=== PATIENT | male | born 1950 | race Caucasian/White ===

== ENCOUNTER 2021-08-12 20:30 | Inpatient (IN) | payer OTHER ==
[~2021-08-12] VITALS: Ht 182.9 cm; Wt 107.8 kg
[2021-08-12 21:30] LABS: Alanine Aminotransfer (ALT/SGP 56 U/L (12-78); Albumin, Blood 2.1 g/dL (3.4-5.0); Albumin/Globulin Ratio 0.8 (0.8-1.8); Alk Phos 42 U/L (50-136); Anion Gap 9 mmol/L (6-16); Aspartate Aminotrans (AST/SGOT 44 U/L (12-37); Bilirubin, Total 0.7 mg/dL (0.1-1.0); Blood Urea Nitrogen 91 mg/dL (8-24); Bun/Creatinine Ratio 83.5 (12.0-20.0); CO2, Blood 23 mmol/L (21-32); Calcium, Blood 8.2 mg/dL (8.5-10.1); Chloride, Blood 110 mmol/L (98-108); Creatinine, Blood 1.09 mg/dL (0.60-1.20); Globulin, Blood 2.6 g/dL (2.2-4.0); Glomerular Filtration Rate >60 (60-); Glucose, Blood 132 mg/dL (70-99); Potassium, Blood 4.3 mmol/L (3.5-5.5); Sodium, Blood 142 mmol/L (136-145); Total Protein, Blood 4.7 g/dL (6.4-8.2)
[2021-08-12 21:31] LABS: BASOPHILS ABSOLUTE AUTO 0.04 K/mm3 (0.00-0.23); BASOPHILS PERCENT AUTO 0 % (0-2); MONOCYTES PERCENT AUTO 9 % (4-13)
[2021-08-12 21:38] LABS: EOSINOPHILS ABSOLUTE AUTO 0.12 K/mm3 (0.00-0.68); EOSINOPHILS PERCENT AUTO 1 % (0-6); IMMATURE GRAN ABSOLUTE AUTO 0.89 K/mm3 (0.00-0.10); IMMATURE GRAN PERCENT AUTO 5 % (0-1); LYMPHOCYTES PERCENT AUTO 19 % (21-46); MONOCYTES ABSOLUTE AUTO 1.76 K/mm3 (0.16-1.47); Mean Corpuscular HGB 34.3 pg (26.0-34.0); Mean Corpuscular HGB Conc 33.3 g/dL (31.5-36.5); Mean Corpuscular Volume 103 fL (80-100); Mean Platelet Volume 11.4 fL (9.1-12.4); NEUTROPHILS ABSOLUTE AUTO 12.26 K/mm3 (1.96-9.15); NEUTROPHILS PERCENT AUTO 66 % (41-73); NRBC ABSOLUTE 0.51 K/mm3 (0.00-0.02); NRBC Auto 2.7 /100 WBC (0.0-0.2); Platelet Count 132 K/mm3 (150-400); RDW Coefficient Variation 15.1 % (11.7-14.2); RDW Standard Deviation 52.8 fL (35.1-46.3); White Blood Cell Count 18.67 K/mm3 (4.00-11.30)
[2021-08-12 21:40] LABS: Hematocrit 14.4 % (37.0-53.0); Hemoglobin 4.8 g/dL (13.5-17.5)
[2021-08-12 21:52] LABS: Influenza A, PCR NEGATIVE (NEGATIVE); Influenza B, PCR NEGATIVE (NEGATIVE); Resp Syncytial Virus, PCR NEGATIVE (NEGATIVE); SARS-Cov-2 (COVID-19) PCR, MMC NEGATIVE (NEGATIVE)
[2021-08-13 00:33] LABS: Hematocrit 20.6 % (37.0-53.0); Hemoglobin 6.9 g/dL (13.5-17.5)
--- NOTE | 2021-08-13 01:15 | NUR ---
Assumed care. Report received from WELDING MACHINE OPERATOR [employer]. Pt arrived to ICU, EGD team with Dr. Comer at bedside for scope procedure. After procedure, one unit of PRBCs transfused for low H&H. Protonix running at 10 ml/hr. Pt recovered slowly from procedural sedation but was able to wake up and follow commands. Family at bedside for approximately 1 hour after procedure finished. VS stable throughout event.
--- NOTE | 2021-08-13 01:26 | NUR ---
08/13/21 0126 Ara Banegas MONITOR INTACT WITH CONTINUOUS PULSE OXIMETRY AND INTERMITTENT BP. PROCEDURE ROOM ICU 4.
[2021-08-13] MEDS ORDERED: TIMO.5OPSO BOTHEYES (02:49)
--- NOTE | 2021-08-13 06:42 | NUR ---
Shift summary. Pt stayed in bed since admission and scope procedure. After procedure, pt desaturated easily and oxygen requirements increased to 6 L/min via NC. Stat chest xray obtained for assessment, no new orders received. See shift assessment/notes for further details. Albumin running at 100 ml/hr, protonix infusing at 10 ml/hr. Pt able to use urinal in bed, 550 voided this shift. VS stable, will continue to monitor and report off to dayshift RN.
[2021-08-13 07:16] LABS: BASOPHILS ABSOLUTE AUTO 0.05 K/mm3 (0.00-0.23); BASOPHILS PERCENT AUTO 0 % (0-2); EOSINOPHILS ABSOLUTE AUTO 0.09 K/mm3 (0.00-0.68); EOSINOPHILS PERCENT AUTO 1 % (0-6); Hematocrit 23.1 % (37.0-53.0); Hemoglobin 7.7 g/dL (13.5-17.5); IMMATURE GRAN ABSOLUTE AUTO 0.66 K/mm3 (0.00-0.10); IMMATURE GRAN PERCENT AUTO 4 % (0-1); LYMPHOCYTES ABSOLUTE AUTO 2.72 K/mm3 (0.84-5.20); LYMPHOCYTES PERCENT AUTO 16 % (21-46); MONOCYTES PERCENT AUTO 11 % (4-13); Mean Corpuscular HGB 32.4 pg (26.0-34.0); Mean Corpuscular HGB Conc 33.3 g/dL (31.5-36.5); Mean Platelet Volume 11.2 fL (9.1-12.4); NEUTROPHILS ABSOLUTE AUTO 11.48 K/mm3 (1.96-9.15); NEUTROPHILS PERCENT AUTO 68 % (41-73); NRBC ABSOLUTE 0.86 K/mm3 (0.00-0.02); NRBC Auto 5.1 /100 WBC (0.0-0.2); Platelet Count 107 K/mm3 (150-400); RDW Coefficient Variation 17.8 % (11.7-14.2); RDW Standard Deviation 58.3 fL (35.1-46.3); Red Blood Cell Count 2.38 M/mm3 (4.30-5.90)
--- NOTE | 2021-08-13 07:28 | NUR ---
Patient awake in bed post lab draw. He is alert to person and place. he follows basic directions and is able to communicate his needs. he is on 6L O2 via NC and sats 100% and will wean down as appropriate. He has audible wheezes at bedside. He has 18ga RW and is infusing Protonix at 10 ml/hr, also has 18ga LAC dressing intact and site WNL's and is flushed and SL'd. He sits at bedside and uses urinal appropriatly and had about 100ml light chito urine out and layed back down to rest.
[2021-08-13 07:36] LABS: Alanine Aminotransfer (ALT/SGP 63 U/L (12-78); Albumin, Blood 2.7 g/dL (3.4-5.0); Albumin/Globulin Ratio 1.1 (0.8-1.8); Alk Phos 45 U/L (50-136); Anion Gap 10 mmol/L (6-16); Aspartate Aminotrans (AST/SGOT 55 U/L (12-37); Bilirubin, Total 1.1 mg/dL (0.1-1.0); Blood Urea Nitrogen 93 mg/dL (8-24); Bun/Creatinine Ratio 87.7 (12.0-20.0); CO2, Blood 20 mmol/L (21-32); Calcium, Blood 7.9 mg/dL (8.5-10.1); Chloride, Blood 111 mmol/L (98-108); Creatinine, Blood 1.06 mg/dL (0.60-1.20); Globulin, Blood 2.4 g/dL (2.2-4.0); Glomerular Filtration Rate >60 (60-); Glucose, Blood 117 mg/dL (70-99); Potassium, Blood 4.4 mmol/L (3.5-5.5); Sodium, Blood 141 mmol/L (136-145); Total Protein, Blood 5.1 g/dL (6.4-8.2)
[2021-08-13 07:49] LABS: Mean Corpuscular Volume 97 fL (80-100)
--- NOTE | 2021-08-13 09:30 | NUR ---
Patient up out of bed and urinated on floor, so placed him in recliner and changed bed linen and cleaned him up a little bit. He remains omn 6L O2 via NC and sats 100%, tried to wean down but with his sleeping started to de-sat. He needs to have SBA when up as he is weak and shakey. He has 400 ml light chito urine out. Ex- at bedside.
[2021-08-13 12:16] LABS: Hematocrit 19.2 % (37.0-53.0); Hemoglobin 6.6 g/dL (13.5-17.5)
--- NOTE | 2021-08-13 13:30 | NUR ---
He was up in chair for short period and had full liquid diet and tolerated well. He remains on 6l O2 via NC and sats mid 90%'s. Ex- back at bedside. He has transferred back to bed with one assist and tolerated well. He seems more oriented since being up with new diet.
[2021-08-13 15:06] LABS: Percent Saturation 59.8 % (20.0-50.0)
--- NOTE | 2021-08-13 15:36 | NUR ---
Patient remains in bed and just started to get up to use urinal and does not call. Protonix continues at 10 m l/hr. He is going to get blood for 6.6 HgB. He has been following simple commands. Ex- and left for a litle while and he was sleeping until lab awoke him. NN started another 20ga IV in RFA posterior.
[2021-08-13 15:58] LABS: International Normalized Ratio 1.63; Prothrombin Time Results 16.6 Sec (9.7-11.5)
--- NOTE | 2021-08-13 18:00 | NUR ---
Patient very restless and is up and down constantly. Blood still infusing, almost done. still at bedside. He remains on 6L O2 and sats 100%. He has been using urinal sitting up at bedside and amount 100-200 ml at a time. He tolerated dinner about 90%. Protonix 10 ml/hr. 18ga LAC IV is oozing and NOC will change out.
--- NOTE | 2021-08-13 19:15 | NUR ---
ASSUMED CARE OF PATIENT. HE IS AGITATED AND VERY RESTLESS. HE IS CLIMBING OUT OF BED EVERY COUPLE MINUTES AND GETTING TANGLED IN MONITOR CORDS, STATES HE NEEDS TO PEE. ASSISTED PT TO BEDSIDE COMMODE AND OBTAINED ORDER FOR LIDOCAINE UROJET FOR STONER PLACEMENT. PT IS ORIENTED TO SELF, PLACE, AND EVENT, BUT IS FORGETFUL AND IMPULSIVE. BOTH IV'S ARE LEAKING AND PT HAS TO GET UP TO URINATE EL FEW MINUTES.
--- NOTE | 2021-08-13 20:00 | NUR ---
DR PETER IS CALLED FOR PRECEDEX ORDERS.
[2021-08-13 21:14] LABS: Source, Urine Foley catheter
[2021-08-13 21:19] LABS: Hematocrit 17.3 % (37.0-53.0)
[2021-08-13 21:20] LABS: Bilirubin, Urine Neg (Neg); Blood, Urine Neg (Neg); Glucose Qualitative, Urine Neg (Neg); Ketones, Urine Neg (Neg); Leukocyte Esterase, Urine Neg (Neg); Nitrite, Urine Neg (Neg); Protein, Urine 1+ (Neg); Specific Gravity, Urine 1.015 (1.003-1.022); Urobilinogen, Urine NORM (Normal)
[2021-08-13 21:31] LABS: Appearance, Urine Clear (Clear); Color, Urine Pale Yellow (P-Yellow)
--- NOTE | 2021-08-13 23:00 | NUR ---
DR PETER IS CALLED FOR ORDERS FOR HYPOTENSION. ORDER FOR LOW DOSE LEVOPHED RECEIVED.
[2021-08-14 04:28] LABS: Alanine Aminotransfer (ALT/SGP 66 U/L (12-78); Albumin, Blood 2.1 g/dL (3.4-5.0); Albumin/Globulin Ratio 0.9 (0.8-1.8); Alk Phos 39 U/L (50-136); Anion Gap 4 mmol/L (6-16); Aspartate Aminotrans (AST/SGOT 69 U/L (12-37); Bilirubin, Total 1.1 mg/dL (0.1-1.0); Blood Urea Nitrogen 81 mg/dL (8-24); Bun/Creatinine Ratio 84.2 (12.0-20.0); CO2, Blood 27 mmol/L (21-32); Calcium, Blood 7.7 mg/dL (8.5-10.1); Chloride, Blood 112 mmol/L (98-108); Creatinine, Blood 0.96 mg/dL (0.60-1.20); Globulin, Blood 2.3 g/dL (2.2-4.0); Glomerular Filtration Rate >60 (60-); Glucose, Blood 130 mg/dL (70-99); Potassium, Blood 4.7 mmol/L (3.5-5.5); Sodium, Blood 143 mmol/L (136-145); Total Protein, Blood 4.4 g/dL (6.4-8.2)
[2021-08-14 05:15] LABS: Hematocrit 22.6 % (37.0-53.0); Hemoglobin 7.7 g/dL (13.5-17.5); Mean Corpuscular HGB 31.7 pg (26.0-34.0); Mean Corpuscular HGB Conc 34.1 g/dL (31.5-36.5); Mean Corpuscular Volume 93 fL (80-100); Mean Platelet Volume 10.8 fL (9.1-12.4); NRBC Auto 8.5 /100 WBC (0.0-0.2); Platelet Count 60 K/mm3 (150-400); RDW Coefficient Variation 16.2 % (11.7-14.2); RDW Standard Deviation 52.2 fL (35.1-46.3); Red Blood Cell Count 2.43 M/mm3 (4.30-5.90); White Blood Cell Count 10.53 K/mm3 (4.00-11.30)
[2021-08-14 05:51] LABS: BAND PERCENT MAN 9 % (0-8); BASOPHILS PERCENT MAN 0 % (0-2); EOSINOPHILS PERCENT MAN 0 % (0-6); LYMPHOCYTES ABSOLUTE MAN 1.36 K/mm3 (0.84-5.20); LYMPHOCYTES PERCENT MAN 13 % (21-46); METAMYELOCYTE PERCENT MAN 1 % (0-0); MONOCYTES ABSOLUTE MAN 0.84 K/mm3 (0.16-1.47); MONOCYTES PERCENT MAN 8 % (4-13); MYELOCYTE ABSOLUTE MAN 0.21 K/mm3 (0.00-0.00); MYELOCYTE PERCENT MAN 2 % (0-0); SEG NEUTROPHILS PERCENT MAN 67 % (41-73); TOTAL CELLS COUNTED 100
--- NOTE | 2021-08-14 06:44 | NUR ---
PTIS RESTFUL AND CALM ON PRECEDEX, TITRATED TO HR AND SEDATION. BP STABLE ON LEVOPHED AT 2MCG/MIN. NO OTHER SIGNIFICANT CHANGES NOTED. POC IS REPEAT EGD TODAY. NO EMESIS OR STOOLING OVERNIGHT. WILL CONTINUE TO MONITOR AND REPORT TO ONCOMING SHIFT.
[2021-08-14 09:50] LABS: Hematocrit 23.9 % (37.0-53.0); Hemoglobin 8.1 g/dL (13.5-17.5)
--- NOTE | 2021-08-14 11:52 | NUR ---
ASSUMED CARE OF PATIENT 0700: AOX1, RESTRAINTS ON, FOLLOWS COMMANDS, SOMNOLENT, DEX 0.9 NOW TITRATING DOWN, NSR 70S, BP WNL WITH LOW DOSE LEVO 2, LUNGS CLEAR/DIM SATS WNL ON RA, STONER DRAINING CLEAR YELLOW OUTPUT, NO BM, H&H STABLE, WILL CONTINUE TO MONITOR.
--- NOTE | 2021-08-14 14:53 | NUR ---
INTO ICU 4 SETTING UP TO DO ENDOSCOPY CASE. PATIENT ASSLEEP IN BED AT BEDSIDE.
--- NOTE | 2021-08-14 15:32 | NUR ---
08/14/21 1532 Williams Lindsay See Anesthesia record DR CHONG. Bite Block Placed. POM MASK THROUGH OUT PROCDEDURE. History, Chart, Medications and Allergies reviewed before start of procedure. MONITOR INTACT WITH CONTINUOUS PULSE OXIMETRY AND INTERMITTENT BP.
--- NOTE | 2021-08-14 17:05 | NUR ---
POST EGD EXCESSIVE SOMNOLENCE, SATS WNL, RR WNL, GCS 3, PATIENT ABLE TO FOLLOW COMMANDS/OPEN EYES AT 1630, LEVO 1-5 DURRING RECOVERY, NOW ON STANDBY, CONTINUED SOMNOLENCE BUT ABLE TO FOLLOW COMMANDS, NOW ON RA, WILL CONTINUE TO MONITOR.
--- NOTE | 2021-08-14 19:34 | NUR ---
AOX1, ALERT TO SELF, PRECEDEX TITRATED TO EFFECT, RESTRAINTS CONTINUED, WRIST RESTRAINTS OFF 1600 FOR IMPROVED BEHAVIOR, SR 70S, FLUID RETENTION EVIDENT EXTREMETIES, CT SCAN COMPLETED PENDING RESULTS, AWAITING ECHO, EGD COMPLETED GASTRIC VARICIES, AWAITING BED AT [facility] FOR TRANSFER TIPS/BANDING PER MD CRUZ, H&H STABLE THIS SHIFT, ADEQUATE UOP CLEAR/ZONIA FROM STONER, LUNGS CLEAR/DIM, RA VS 4L NC POST EGD, REPORT GIVEN TO NIGHT RN.
--- NOTE | 2021-08-14 20:00 | NUR ---
ASSUMED CARE OF PT AT 1900. HE IS MORE ALERT, CALM, AND COOPERATIVE AT THIS TIME, AOX4/4. PRECEDEX HAS BEEN TITRATED DOWN TO 0.2MCG/KG/HR AND LEVOPHED IS OFF. EGD DONE TODAY FINDING GASTRIC VARICES. PT IS PENDING TRANSFER TO [facility] FOR TIPS.
--- NOTE | 2021-08-14 23:00 | NUR ---
PT HAS BECOME INCREASINGLY AGITATED, REQUIRING PRECEDEX TO BE TITRATED UP. HE HAS PULLED OUT IV'S AND IS PULLING ON HIS STONER CATHETER. HE IS REORIENTED AND REDIRECTED WHILE MEDICATION TAKES EFFECT.
[2021-08-14 23:19] LABS: Hematocrit 22.3 % (37.0-53.0); Hemoglobin 7.4 g/dL (13.5-17.5)
--- NOTE | 2021-08-14 23:33 | NUR ---
DR CRUZ IS UPDATED WITH HGB AND HCT. WILL RECHECK WITH MORNING LABS AND TRANSFUSE 1 UNIT PRBC'S IF HGB <7.
--- NOTE | 2021-08-15 00:25 | NUR ---
PT IS UPDATED WITH POC PER DR. CRUZ. PT IS NOT BEING TRANSFERRED TONIGHT TO [facility], AWAITING ECHO RESULTS AND FURTHER DISCUSSION WITH [facility], PT, AND FAMILY ABOUT RISKS/BENEFITS OF TIPS PROCEDURE IF PT IS A CANDIDATE.
[2021-08-15 05:11] LABS: Hematocrit 22.2 % (37.0-53.0); Hemoglobin 7.3 g/dL (13.5-17.5); Mean Corpuscular HGB 31.7 pg (26.0-34.0); Mean Corpuscular HGB Conc 32.9 g/dL (31.5-36.5); Mean Corpuscular Volume 97 fL (80-100); Mean Platelet Volume 10.9 fL (9.1-12.4); NRBC Auto 11.3 /100 WBC (0.0-0.2); Platelet Count 59 K/mm3 (150-400); RDW Coefficient Variation 17.8 % (11.7-14.2); RDW Standard Deviation 55.5 fL (35.1-46.3); White Blood Cell Count 7.94 K/mm3 (4.00-11.30)
[2021-08-15 05:30] LABS: Alanine Aminotransfer (ALT/SGP 84 U/L (12-78); Albumin, Blood 2.1 g/dL (3.4-5.0); Albumin/Globulin Ratio 0.9 (0.8-1.8); Alk Phos 42 U/L (50-136); Anion Gap 4 mmol/L (6-16); Aspartate Aminotrans (AST/SGOT 80 U/L (12-37); Bilirubin, Total 0.9 mg/dL (0.1-1.0); Blood Urea Nitrogen 58 mg/dL (8-24); Bun/Creatinine Ratio 67.6 (12.0-20.0); CO2, Blood 27 mmol/L (21-32); Calcium, Blood 7.6 mg/dL (8.5-10.1); Chloride, Blood 116 mmol/L (98-108); Creatinine, Blood 0.86 mg/dL (0.60-1.20); Globulin, Blood 2.3 g/dL (2.2-4.0); Glomerular Filtration Rate >60 (60-); Glucose, Blood 118 mg/dL (70-99); Potassium, Blood 4.5 mmol/L (3.5-5.5); Sodium, Blood 147 mmol/L (136-145); Total Protein, Blood 4.4 g/dL (6.4-8.2)
[2021-08-15 05:34] LABS: International Normalized Ratio 1.33; Prothrombin Time Results 13.7 Sec (9.7-11.5)
--- NOTE | 2021-08-15 06:11 | NUR ---
FOLLOWING EPISODE OF ESCALATING AGITATION, PT CALMS AND RESTS WELL FOR SEVERAL HOURS WITH ATIVAN AND PRECEDEX. PRECEDEX IS TITRATED BACK DOWN TO 0.8MCG/KG/HR AT THIS POINT. HE IS CURRENTLY ON 1 MCG/MIN OF LEVOPHED FOR BP SUPPORT. SPO2 MAINTAINED IN HIGH 90'S ON NC AT 2LPM. HR 60'S TO 80'S, BUE EDEMATOUS WITH ARMS ELEVATED ON PILLOWS. UO 950ML TOTAL FOR THE SHIFT. WILL CONTINUE TO MONITOR AND REPORT TO ONCOMING SHIFT.
[2021-08-15 06:43] LABS: BASOPHILS ABSOLUTE MAN 0.07 K/mm3 (0.00-0.23); BASOPHILS PERCENT MAN 1 % (0-2); EOSINOPHILS ABSOLUTE MAN 0.23 K/mm3 (0.00-0.68); EOSINOPHILS PERCENT MAN 3 % (0-6); LYMPHOCYTES % ATYPICAL MANUAL 1 % (0-0); LYMPHOCYTES PERCENT MAN 18 % (21-46); METAMYELOCYTE ABSOLUTE MAN 0.07 K/mm3 (0.00-0.00); METAMYELOCYTE PERCENT MAN 1 % (0-0); MONOCYTES ABSOLUTE MAN 0.79 K/mm3 (0.16-1.47); MONOCYTES PERCENT MAN 10 % (4-13); MYELOCYTE ABSOLUTE MAN 0.31 K/mm3 (0.00-0.00); MYELOCYTE PERCENT MAN 4 % (0-0); NEUTROPHILS ABSOLUTE MAN 4.92 K/mm3 (1.96-9.15); SEG NEUTROPHILS PERCENT MAN 62 % (41-73); TOTAL CELLS COUNTED 100
--- NOTE | 2021-08-15 07:37 | NUR ---
Received report from Sona OWENS. Patient sleeping and awakens to verbal stimuli and falls back to sleep. He is on 2L O2 via NC and sats 98%. He has bilateral PowerGlides in Upper arms, Left arm is infusing Octrotide 50 mcg/hr, Precedex at 0.8 mcg/kg/hr and NS TKO, right one infusing Protonix at 10 ml/hr. He has 14 Fr Nicole draining to gravity dark yellow urine. He has bilateral soft wrist restraits and damion in place. SCD's bilateral to LE's. SR 70's and 90 systolic with MAP 65 and >.
[2021-08-15 09:11] LABS: HBSAG SCREEN Negative (Negative); HEP B CORE AB, TOT Positive (Negative); HEP C VIRUS AB >11.0 (0.0-0.9)
--- NOTE | 2021-08-15 11:28 | NUR ---
Patient given bath and linen change with oral care and cath care. He awakened with care and falls back to sleep. Nicole remains patent. Bilateral PowerGlides infusing, Right is infusing Octreotide at 50 mcg/hr, Precedex at 0.8 mcg/kg/hr and NS TKO, right powerglide infusing Protonix at 10 ml/hr. SCD remains on bilateralLE's. He also remains in a damion and bilateral soft wrist.
--- NOTE | 2021-08-15 13:30 | NUR ---
Patients has been in and out, but he has been sleeping. Protonix at 10ml/hr, Precedex at 1.0 and was increased an hour ago for agitation, Octreotide at 50 mcg/hr and NS TKO. Nicole remains patent with dark yellow urine. SCD's bilateral LE's
--- NOTE | 2021-08-15 15:30 | NUR ---
Reduced Precedex back to 0.7 and patient is resting, also medicated with 1 mg of Ativan. Ex- at bedside taking breaks off and on. Awaiting Dr Comer to come by. VSS. He remains on 1.5L O2 via NC and sats 99%. Octreotide and Protonix remains same rates.
[2021-08-15 17:14] LABS: Hematocrit 22.5 % (37.0-53.0); Hemoglobin 7.2 g/dL (13.5-17.5)
--- NOTE | 2021-08-15 17:57 | NUR ---
Patient continues to rest. Remains on 2L O2 via NC and sats 100% with apnea. He has bilateral 18ga IV's, left infusing NS tko, Octreotide at 50 mcg/hr, Precedex at 0.7 mcg/kg/hr, and right infusing Protonix at 10. All lines changed out. Nicole patent and has 1220 out of dark yellow urine. SCD's bilateral LE's and poasey with bilateral soft wrist restraints.
--- NOTE | 2021-08-15 19:15 | NUR ---
Assumed care after report recv'd assessment complete. precedex infusing at 0.7, resting quietly. will arouse when spoken to and follow requests. Nods yes/no to quesitions then goes back to sleep. Dr Comer in to see, orders rec'd.
--- NOTE | 2021-08-16 01:28 | NUR ---
Awake, attempting to climb out of bed. pulling on restraints. stating wants "out". will not redirect. ativan given for agitation
--- NOTE | 2021-08-16 02:00 | NUR ---
Continues to climb out of bed, begins to have audible wheezes. Lung sounds with wheezing in bilat upper lobes, worse on left. RT called for breathing treatment. encouraged to cough- cough weak. Audible wheezing subsided but continues to have wheezing in upper lobes.
[2021-08-16 04:49] LABS: Hematocrit 23.6 % (37.0-53.0); Hemoglobin 7.6 g/dL (13.5-17.5); Mean Corpuscular HGB 32.6 pg (26.0-34.0); Mean Corpuscular HGB Conc 32.2 g/dL (31.5-36.5); Mean Corpuscular Volume 101 fL (80-100); Mean Platelet Volume 11.1 fL (9.1-12.4); NRBC ABSOLUTE 0.24 K/mm3 (0.00-0.02); NRBC Auto 5.5 /100 WBC (0.0-0.2); RDW Coefficient Variation 19.2 % (11.7-14.2); RDW Standard Deviation 56.5 fL (35.1-46.3); Red Blood Cell Count 2.33 M/mm3 (4.30-5.90); White Blood Cell Count 4.35 K/mm3 (4.00-11.30)
[2021-08-16 05:04] LABS: Alanine Aminotransfer (ALT/SGP 96 U/L (12-78); Albumin, Blood 2.1 g/dL (3.4-5.0); Albumin/Globulin Ratio 0.8 (0.8-1.8); Alk Phos 51 U/L (50-136); Anion Gap 3 mmol/L (6-16); Aspartate Aminotrans (AST/SGOT 83 U/L (12-37); Bilirubin, Total 1.5 mg/dL (0.1-1.0); Blood Urea Nitrogen 36 mg/dL (8-24); Bun/Creatinine Ratio 48.7 (12.0-20.0); CO2, Blood 27 mmol/L (21-32); Calcium, Blood 7.4 mg/dL (8.5-10.1); Chloride, Blood 119 mmol/L (98-108); Creatinine, Blood 0.74 mg/dL (0.60-1.20); Globulin, Blood 2.5 g/dL (2.2-4.0); Glomerular Filtration Rate >60 (60-); Glucose, Blood 113 mg/dL (70-99); Sodium, Blood 149 mmol/L (136-145); Total Protein, Blood 4.6 g/dL (6.4-8.2)
[2021-08-16 05:27] LABS: Platelet Count 45 K/mm3 (150-400)
[2021-08-16 05:40] LABS: BAND PERCENT MAN 5 % (0-8); BASOPHILS PERCENT MAN 0 % (0-2); EOSINOPHILS ABSOLUTE MAN 0.17 K/mm3 (0.00-0.68); EOSINOPHILS PERCENT MAN 4 % (0-6); LYMPHOCYTES ABSOLUTE MAN 0.34 K/mm3 (0.84-5.20); LYMPHOCYTES PERCENT MAN 8 % (21-46); METAMYELOCYTE ABSOLUTE MAN 0.08 K/mm3 (0.00-0.00); METAMYELOCYTE PERCENT MAN 2 % (0-0); MONOCYTES ABSOLUTE MAN 0.17 K/mm3 (0.16-1.47); MONOCYTES PERCENT MAN 4 % (4-13); MYELOCYTE ABSOLUTE MAN 0.17 K/mm3 (0.00-0.00); MYELOCYTE PERCENT MAN 4 % (0-0); NEUTROPHILS ABSOLUTE MAN 3.34 K/mm3 (1.96-9.15); PROMYELOCYTE ABSOLUTE MAN 0.04 K/mm3 (0.00-0.00); PROMYELOCYTE PERCENT MAN 1 % (0-0); SEG NEUTROPHILS PERCENT MAN 72 % (41-73); TOTAL CELLS COUNTED 100
--- NOTE | 2021-08-16 06:23 | NUR ---
Confused and restless, attempting to climb out of bed and pull lines off. Precedex increased as needed to help decrease agitation. Hgb up from yesterday, plt decreased. Dr notified of platlet level.
--- NOTE | 2021-08-16 07:33 | NUR ---
received report from pm rn, patient confused, moaning, and pulling at restraints, constant restless movements in bed, responds to name, [email or web address]
--- NOTE | 2021-08-16 09:53 | NUR ---
at bedside, reported pateint care to her
--- NOTE | 2021-08-16 10:40 | NUR ---
DOBHOFF PLACED, PLACEMENT CHECKED WITH STETHESCOPE, CHEST XRAY FOR PLACEMENT ORDERED, PATIENT TOLERATED WELL, SCREAMING ANF THRASHING HEAD NOW SAYING "TAKE IT OUT", HE IS RESTING COMFORTABLE, LEFT MESSAGE FOR DR IRVING THAT AT BEDSIDE WANTING A UPDATE FROM THE DOCTOR
--- NOTE | 2021-08-16 10:54 | NUR ---
XRAY FOR DOBHOF DONE, WAITING FOR RESULTS
--- NOTE | 2021-08-16 13:21 | NUR ---
DOBHOF PLACED, PLACEMENT GOOD PER RADIOLOGY, GUIDE WIRE REMOVED JEVITY 1.5 INFUSING AT 25 ML/HR, HOB 30 DEGREES OR GREATER, WCTM
--- NOTE | 2021-08-16 14:14 | NUR ---
DRI ROUNDING ON PATIENT, NO CHANGES MADE
--- NOTE | 2021-08-16 16:35 | NUR ---
CLARIFY PATIENT DOES NOT HAVE A SUPRAPUBIC CATHETER, IT IS A STONER CATHETER
--- NOTE | 2021-08-16 18:29 | NUR ---
PATIENT LETHARGIC WITH MOMENTS OF CLARITY, CONFUSED YELLING HELP, UNCONSOLABLE, GARBLED SPEECH, CLEAR AT TIMES, CALL LIGHT WITH IN REACH, PATIENT CONSTANTLY MOVES AND TRIES TO GRAB LINES. LS SOUNDS COARSE, COUGH CLEARS CONGESTION, FALIED BEDSIDE SWALLOW EVAL, DOBHOFF IN PLACE JEVITY 1.5 INFUSING, TKO NS, OCTREOTIDE 25 ML/HR, PROTONIX 10 ML/HR, PRECEDES 1.4 PER ORDER, SO VISTIED THROUGH THE DAY, WILL RELAY TO PM RN, JENNTM
[2021-08-17 03:37] LABS: Hematocrit 23.1 % (37.0-53.0); Hemoglobin 7.2 g/dL (13.5-17.5); Mean Corpuscular HGB 31.7 pg (26.0-34.0); Mean Corpuscular HGB Conc 31.2 g/dL (31.5-36.5); Mean Corpuscular Volume 102 fL (80-100); NRBC ABSOLUTE 0.05 K/mm3 (0.00-0.02); NRBC Auto 1.9 /100 WBC (0.0-0.2); RDW Coefficient Variation 19.8 % (11.7-14.2); RDW Standard Deviation 55.8 fL (35.1-46.3); Red Blood Cell Count 2.27 M/mm3 (4.30-5.90); White Blood Cell Count 2.69 K/mm3 (4.00-11.30)
[2021-08-17 03:41] LABS: Platelet Count 38 K/mm3 (150-400)
[2021-08-17 03:52] LABS: Anion Gap 1 mmol/L (6-16); Blood Urea Nitrogen 24 mg/dL (8-24); CO2, Blood 28 mmol/L (21-32); Calcium, Blood 7.1 mg/dL (8.5-10.1); Chloride, Blood 121 mmol/L (98-108); Creatinine, Blood 0.65 mg/dL (0.60-1.20); Glomerular Filtration Rate >60 (60-); Glucose, Blood 168 mg/dL (70-99); Magnesium, Blood 2.4 mg/dL (1.6-2.4); Phosphorus, Blood 2.7 mg/dL (2.5-4.9); Potassium, Blood 4.2 mmol/L (3.5-5.5); Sodium, Blood 150 mmol/L (136-145)
[2021-08-17 04:08] LABS: BAND PERCENT MAN 3 % (0-8); BASOPHILS PERCENT MAN 0 % (0-2); EOSINOPHILS ABSOLUTE MAN 0.08 K/mm3 (0.00-0.68); EOSINOPHILS PERCENT MAN 3 % (0-6); LYMPHOCYTES ABSOLUTE MAN 0.18 K/mm3 (0.84-5.20); LYMPHOCYTES PERCENT MAN 7 % (21-46); METAMYELOCYTE ABSOLUTE MAN 0.02 K/mm3 (0.00-0.00); METAMYELOCYTE PERCENT MAN 1 % (0-0); MONOCYTES ABSOLUTE MAN 0.48 K/mm3 (0.16-1.47); MONOCYTES PERCENT MAN 18 % (4-13); MYELOCYTE ABSOLUTE MAN 0.05 K/mm3 (0.00-0.00); MYELOCYTE PERCENT MAN 2 % (0-0); NEUTROPHILS ABSOLUTE MAN 1.85 K/mm3 (1.96-9.15); SEG NEUTROPHILS PERCENT MAN 66 % (41-73); TOTAL CELLS COUNTED 100
--- NOTE | 2021-08-17 05:27 | NUR ---
Remains confused with agitation, when awake makes continous attempts to climb out of bed and pull at dyer and lines. restraints remain in place. Unable to redirect. Oriented to self only and does not follow directions. Precedex weined down due to bradycardia.
--- NOTE | 2021-08-17 10:18 | NUR ---
0813 DR RUEDA ROUNDED, RECOMMENDED SUPERVISOR PASTE PLANT TO INCREASE FUSH AMOUNT IN DOBHOF, ATIVAN CHANGED TO Q2P, AMMONIA 50, LACTULOSE ADDED. REPORTED TO SUPERVISOR PASTE PLANT THE NEED TO INCREASE FLUSHES, WCTM
[2021-08-17 14:09] LABS: ACTIN (SMOOTH MUSCLE) ANTIBODY 13 Units (0-19)
[2021-08-17 15:20] LABS: Anion Gap 1 mmol/L (6-16); Blood Urea Nitrogen 20 mg/dL (8-24); Bun/Creatinine Ratio 32.6 (12.0-20.0); CO2, Blood 30 mmol/L (21-32); Calcium, Blood 7.2 mg/dL (8.5-10.1); Chloride, Blood 121 mmol/L (98-108); Creatinine, Blood 0.61 mg/dL (0.60-1.20); Glomerular Filtration Rate >60 (60-); Glucose, Blood 162 mg/dL (70-99); Potassium, Blood 4.2 mmol/L (3.5-5.5); Sodium, Blood 152 mmol/L (136-145)
--- NOTE | 2021-08-17 18:30 | NUR ---
PATIENT SLEEPING OR AWAKE, ORIENTED TO SELF AND PAST, SPEECH GARBLED AND IS A MOAN, HARD TO UNDERSTAND, SO AND GRANDAUGHTER AT BEDSIDE. LS CLEAR, WHEN PATIENT STRAINS AGAINTS RESTRAINTS HE BECOME WHEEZY FROM EXHAUSTION. SBP WNL, DENIES CP. STONER PINK/ORANGE TO GRAVITY. LIQUID STOOL TODAY, SKIN CLEAN DRY AND INTACT. JEVITY 1.5 AT 80 ML/HR GOAL RATE, FLUSHES INCREASED TO 235 Q4H, OCTREOTIDE AT 25 ML/HR, PRECEDEX 1, 1/2 NS AT TKO, PROTONIX 10ML/HR. CLARIFIED NO NEED FOR DVT PROPHOLACTIC TREATMENT. WILL RELAY TO PM RN, MERCEDES
[2021-08-18 03:49] LABS: Hematocrit 26.3 % (37.0-53.0); Hemoglobin 8.1 g/dL (13.5-17.5)
[2021-08-18 04:05] LABS: Anion Gap 3 mmol/L (6-16); Blood Urea Nitrogen 21 mg/dL (8-24); Bun/Creatinine Ratio 31.8 (12.0-20.0); CO2, Blood 29 mmol/L (21-32); Calcium, Blood 7.3 mg/dL (8.5-10.1); Chloride, Blood 120 mmol/L (98-108); Creatinine, Blood 0.66 mg/dL (0.60-1.20); Glomerular Filtration Rate >60 (60-); Glucose, Blood 140 mg/dL (70-99); Potassium, Blood 3.7 mmol/L (3.5-5.5); Sodium, Blood 152 mmol/L (136-145)
--- NOTE | 2021-08-18 05:55 | NUR ---
confused, thrashing around in bed, attempting to climb out of bed most of night, would not answer questions or follow directions. Incont of liquid dark brown stool. this am around 0400 started talking, asking questions. able to answer questions, but confused. will follow directions but goes back to attempting to get out of bed. will redirect for short period of time. increased wheezing through night in left lobes and audible at times. having increased dyspnea. hospitalist called and notified of changes- order for cxr rec'd.
--- NOTE | 2021-08-18 09:16 | NUR ---
ASSUMED CARE OF PATIENT 0700: AOX1, AGITATED, PULLING AT RESTRAINTS, ATTEMPTING TO PULL LINES/GET OUT OF BED, ATIVAN 1MG GIVEN, DEX AT 0.8 UP TO 1, VSS ON 2L NC, SOME SUBTLE EXP WHEEZE MONICA, EDEMA +1 BLE, TF AT GOAL W/ INCREASED WATER FLUSHES, HYPOACTIVE BOWELS, GIVEN LACTULOSE, WILL CONTINUE TO MONITOR.
[2021-08-18 11:17] LABS: BASOPHILS ABSOLUTE AUTO 0.03 K/mm3 (0.00-0.23); BASOPHILS PERCENT AUTO 1 % (0-2); EOSINOPHILS ABSOLUTE AUTO 0.14 K/mm3 (0.00-0.68); EOSINOPHILS PERCENT AUTO 3 % (0-6); Hematocrit 30.2 % (37.0-53.0); IMMATURE GRAN ABSOLUTE AUTO 0.08 K/mm3 (0.00-0.10); IMMATURE GRAN PERCENT AUTO 2 % (0-1); LYMPHOCYTES ABSOLUTE AUTO 0.66 K/mm3 (0.84-5.20); LYMPHOCYTES PERCENT AUTO 14 % (21-46); MONOCYTES ABSOLUTE AUTO 0.45 K/mm3 (0.16-1.47); MONOCYTES PERCENT AUTO 10 % (4-13); Mean Corpuscular HGB 31.5 pg (26.0-34.0); Mean Corpuscular HGB Conc 29.8 g/dL (31.5-36.5); Mean Corpuscular Volume 106 fL (80-100); Mean Platelet Volume 11.4 fL (9.1-12.4); NEUTROPHILS ABSOLUTE AUTO 3.32 K/mm3 (1.96-9.15); NEUTROPHILS PERCENT AUTO 71 % (41-73); RDW Coefficient Variation 20.3 % (11.7-14.2); RDW Standard Deviation 65.2 fL (35.1-46.3); Red Blood Cell Count 2.86 M/mm3 (4.30-5.90); White Blood Cell Count 4.68 K/mm3 (4.00-11.30)
[2021-08-18 11:37] LABS: Platelet Count 48 K/mm3 (150-400)
[2021-08-18 12:55] LABS: Anion Gap 4 mmol/L (6-16); Blood Urea Nitrogen 20 mg/dL (8-24); Bun/Creatinine Ratio 29.9 (12.0-20.0); CO2, Blood 29 mmol/L (21-32); Calcium, Blood 7.5 mg/dL (8.5-10.1); Chloride, Blood 120 mmol/L (98-108); Creatinine, Blood 0.67 mg/dL (0.60-1.20); Glomerular Filtration Rate >60 (60-); Glucose, Blood 125 mg/dL (70-99); Potassium, Blood 3.7 mmol/L (3.5-5.5); Sodium, Blood 153 mmol/L (136-145)
[2021-08-18 16:31] LABS: Anion Gap 2 mmol/L (6-16); Blood Urea Nitrogen 19 mg/dL (8-24); Bun/Creatinine Ratio 27.6 (12.0-20.0); CO2, Blood 28 mmol/L (21-32); Calcium, Blood 7.4 mg/dL (8.5-10.1); Chloride, Blood 120 mmol/L (98-108); Creatinine, Blood 0.69 mg/dL (0.60-1.20); Glomerular Filtration Rate >60 (60-); Glucose, Blood 152 mg/dL (70-99); Potassium, Blood 3.6 mmol/L (3.5-5.5); Sodium, Blood 150 mmol/L (136-145)
--- NOTE | 2021-08-18 18:45 | NUR ---
AOX1, REMAINS CONFUSED AND AGITATED, GIVEN 5MG ATIVAN PLUS TITRATION OF DEX 0.8-1.4, RESTRAINTS CONTINUED, GARBLED SPEECH AT TIMES, LUNGS CLEAR/DIM W/ SOME SUBTLE EXP WHEEZE MONICA, DIURESING W/ LASIX, ON RA VS 2L NC WHEN SLEEPING, SATS WNL, SR 80S, +2 PULSES, +1 BLE EDEMA IMPROVING W/ LASIX, TF CONTINUED GOAL 80 W/ FLUSHES, ABDOMEN REMAINS DISTENDED NON TENDER, 2 BROWN TYPE 5 BMS, STONER ADEQUATE UOP, LACTULOSE GIVEN W/ AMONIA RETURN TO 31, NA REMAINS HIGH 130, STARTED D5 AT 50 W/ RETURN TO 150 NA, WILL CONTINUE TO MONITOR AND REPORT TO NIGHT RN.
--- NOTE | 2021-08-19 05:00 | NUR ---
Patient per assessment. Precedex gtt at 1.2 at start of shift; pt somulent. Precedex titrated down as tolerated. PRN ativan given for breakthrough agitation, precedex increased for ongoing agitation unrelieved by ativan. Pt is not redirectable; does not follow commands or communicate. Restraints in place for patient safety and decive protection. Large incont episode, 3 seprate liquid bm's, FMS inserted. During care, patient becomes very agitated and fights with staff, not redirectable or cooperative.
[2021-08-19 05:37] LABS: BASOPHILS ABSOLUTE AUTO 0.02 K/mm3 (0.00-0.23); BASOPHILS PERCENT AUTO 1 % (0-2); EOSINOPHILS ABSOLUTE AUTO 0.14 K/mm3 (0.00-0.68); EOSINOPHILS PERCENT AUTO 4 % (0-6); Hematocrit 26.7 % (37.0-53.0); Hemoglobin 8.2 g/dL (13.5-17.5); IMMATURE GRAN ABSOLUTE AUTO 0.04 K/mm3 (0.00-0.10); IMMATURE GRAN PERCENT AUTO 1 % (0-1); LYMPHOCYTES ABSOLUTE AUTO 0.49 K/mm3 (0.84-5.20); LYMPHOCYTES PERCENT AUTO 13 % (21-46); MONOCYTES ABSOLUTE AUTO 0.52 K/mm3 (0.16-1.47); MONOCYTES PERCENT AUTO 14 % (4-13); Mean Corpuscular HGB 32.4 pg (26.0-34.0); Mean Corpuscular HGB Conc 30.7 g/dL (31.5-36.5); Mean Corpuscular Volume 106 fL (80-100); Mean Platelet Volume 12.2 fL (9.1-12.4); NEUTROPHILS ABSOLUTE AUTO 2.54 K/mm3 (1.96-9.15); NEUTROPHILS PERCENT AUTO 68 % (41-73); RDW Coefficient Variation 19.9 % (11.7-14.2); RDW Standard Deviation 67.5 fL (35.1-46.3); Red Blood Cell Count 2.53 M/mm3 (4.30-5.90); White Blood Cell Count 3.75 K/mm3 (4.00-11.30)
[2021-08-19 05:40] LABS: Platelet Count 31 K/mm3 (150-400)
[2021-08-19 05:56] LABS: Alanine Aminotransfer (ALT/SGP 99 U/L (12-78); Albumin/Globulin Ratio 0.7 (0.8-1.8); Alk Phos 90 U/L (50-136); Anion Gap 5 mmol/L (6-16); Aspartate Aminotrans (AST/SGOT 87 U/L (12-37); Bilirubin, Total 0.7 mg/dL (0.1-1.0); Blood Urea Nitrogen 19 mg/dL (8-24); Bun/Creatinine Ratio 30.1 (12.0-20.0); CO2, Blood 29 mmol/L (21-32); Calcium, Blood 7.2 mg/dL (8.5-10.1); Chloride, Blood 116 mmol/L (98-108); Creatinine, Blood 0.63 mg/dL (0.60-1.20); Globulin, Blood 2.9 g/dL (2.2-4.0); Glomerular Filtration Rate >60 (60-); Glucose, Blood 122 mg/dL (70-99); Magnesium, Blood 2.2 mg/dL (1.6-2.4); Phosphorus, Blood 2.8 mg/dL (2.5-4.9); Potassium, Blood 3.8 mmol/L (3.5-5.5); Sodium, Blood 150 mmol/L (136-145); Total Protein, Blood 4.9 g/dL (6.4-8.2)
--- NOTE | 2021-08-19 08:00 | NUR ---
Assumed care. AO to self, does try to answer simple questions when asked. Mumbles with occational clear formed words or short phrases. Pupils equal and reactive. Machine Bookkeeper weak bilaterally. Does wiggle and raise his legs. Audiable expirtory wheezes t/o mid lobes, diminished in bases. No cough noted. O2 2l nc with sats in the 90's. Sinus on the monitor in the 80-90's. BP wnl. Generalized edema dependent in the hips, abdomin. +2 in ble, scd's ordered and currently taking a break from them. Abdomin distended, firm, denies tenderness, pain or nausea. BT hypoactive. Rectal tube in place, dark brown liquid stool, small amount in tube. Cath is patent, dark chito urine. Skin PWD, no breakdown. IV Gtt's include precedex of 1mcq/hr, protonix-10, dextrose-50, sandostatin-50. Will continue to provide care and tx.
--- NOTE | 2021-08-19 08:20 | NUR ---
Spoke to Dr. Maldonado regarding blood sugar >400. New orders received, see chart.
--- NOTE | 2021-08-19 09:00 | NUR ---
Dr. Watson here to see the patient. Informed of expirtory wheezes, increase in alertness. Already spoke to her a half hour ago on the telephone and discussed starting of mood stabilizer as he has been difficult time coming off the precedex. She put in order for serequel. First dose was given.
--- NOTE | 2021-08-19 09:35 | NUR ---
Dr. Burgos and Dr. Maldonado here to see the patient. New orders received. Dr. Burgos decreased peep on vent to 5.
--- NOTE | 2021-08-19 10:30 | NUR ---
got her at 10 am. Gave her an update. She talked about Vicente habits at home, which included his drinking. She informed me that he still does drink but it may be go 1-2 weeks with maybe 3-4 drinks in that period then several weeks off. She has been researching cirrhosis, had questions. Answers were given, and encouraged her to reach out this his doctor as well.
--- NOTE | 2021-08-19 12:00 | NUR ---
Vicente is more awake, forming short sentences, clear. Still drowsy but mentation is improved.
--- NOTE | 2021-08-19 12:00 | NUR ---
Bed changed to Bariatric. Transfer went well, patient tolerated. Suction and oral care was given.
--- NOTE | 2021-08-19 15:50 | NUR ---
Dr. Comer here to see the patient. New orders were received.
--- NOTE | 2021-08-19 16:20 | NUR ---
arrived, currently in the room. Dr. Comer called and updated her.
--- NOTE | 2021-08-19 18:05 | NUR ---
SHIFT SUMMARY: AOx2 (family/self). T/O the day he has improved on communication and ability to form short sentences and comperhension. Improvement was post 1st dose of serequel. Follows directions and has improvement in cooperation during care. Continues to be in posy and soft wrist bilateral to protect lines and from falls. Expiritory wheezes t/o the day with some diminished bases. Dr. Watson ordered xray and breathing tx. Xray normal. No change in wheezes after breathing tx. 2L NC sats high 90's. Continues to be sinus on monitor. Generalized edema to abd, hips, and bilateral hands. Lasix per oders. Nicole patent, dark urine output, 1100 output. Distended abdomin, per md bowers then prior day, hypoactive BT. Rectal tube with liquid brown stool, not enough to reach the bag. Dr. Comer saw the patient. Protonix changed to PO, Propanol started, and lactolose decreased to BID. Continues to be on Precedex at 1 for now. Significant other was informed of Liver dx including Hep C, by Dr. Comer. Education was provided, she plans to look further into it. Will report to oncoming shift.
[2021-08-20 03:39] LABS: BASOPHILS ABSOLUTE AUTO 0.01 K/mm3 (0.00-0.23); BASOPHILS PERCENT AUTO 0 % (0-2); EOSINOPHILS ABSOLUTE AUTO 0.11 K/mm3 (0.00-0.68); EOSINOPHILS PERCENT AUTO 4 % (0-6); Hematocrit 23.4 % (37.0-53.0); Hemoglobin 7.1 g/dL (13.5-17.5); IMMATURE GRAN ABSOLUTE AUTO 0.03 K/mm3 (0.00-0.10); IMMATURE GRAN PERCENT AUTO 1 % (0-1); LYMPHOCYTES ABSOLUTE AUTO 0.46 K/mm3 (0.84-5.20); LYMPHOCYTES PERCENT AUTO 16 % (21-46); MONOCYTES PERCENT AUTO 14 % (4-13); Mean Corpuscular HGB 31.1 pg (26.0-34.0); Mean Corpuscular HGB Conc 30.3 g/dL (31.5-36.5); Mean Corpuscular Volume 103 fL (80-100); Mean Platelet Volume 11.7 fL (9.1-12.4); NEUTROPHILS ABSOLUTE AUTO 1.88 K/mm3 (1.96-9.15); NEUTROPHILS PERCENT AUTO 65 % (41-73); RDW Coefficient Variation 19.2 % (11.7-14.2); RDW Standard Deviation 65.8 fL (35.1-46.3); Red Blood Cell Count 2.28 M/mm3 (4.30-5.90); White Blood Cell Count 2.89 K/mm3 (4.00-11.30)
[2021-08-20 04:04] LABS: Alanine Aminotransfer (ALT/SGP 127 U/L (12-78); Albumin, Blood 1.8 g/dL (3.4-5.0); Albumin/Globulin Ratio 0.7 (0.8-1.8); Alk Phos 77 U/L (50-136); Anion Gap 2 mmol/L (6-16); Aspartate Aminotrans (AST/SGOT 133 U/L (12-37); Bilirubin, Total 0.6 mg/dL (0.1-1.0); Blood Urea Nitrogen 18 mg/dL (8-24); CO2, Blood 29 mmol/L (21-32); Calcium, Blood 7.1 mg/dL (8.5-10.1); Chloride, Blood 114 mmol/L (98-108); Creatinine, Blood 0.67 mg/dL (0.60-1.20); Globulin, Blood 2.7 g/dL (2.2-4.0); Glomerular Filtration Rate >60 (60-); Glucose, Blood 123 mg/dL (70-99); Potassium, Blood 3.8 mmol/L (3.5-5.5); Sodium, Blood 145 mmol/L (136-145); Total Protein, Blood 4.5 g/dL (6.4-8.2)
[2021-08-20 04:19] LABS: Platelet Count 37 K/mm3 (150-400)
--- NOTE | 2021-08-20 09:00 | NUR ---
Assumed Care. AO to self, confused, with increase in mumbling, non-sensenical speech. Does follow direction. Unable to form sentences this morning. Generalized weakness, wiggles every where in bed. Audiable wheezes t/o. Sats 100% on 2 liters. Removed 2L nc, will monitor for drops. Sinus Patrick on Monitor 57-60 then will increase into the 70's. Has had several PVC's. Denies any pain or discomfort. Generalized edema in hands, abd, hips, scrotum. Abd distended, active BT. Liquid Brown stool in rectal tube, minimal. TF at goal, no residual. Abdomin firm. Nicole Gisella clear, patent. No changes in skin condition. Dr. Watson in to see the patient. Increase in seroquel noted. D5 fluids decreased to 30ml/hr. Stopped sandostatin per orders. Significant other stopped by and informed that she has been staying in her car, but she needs to go home for a while. informed will keep updated. Will continue to monitor and provide care.
[2021-08-20 14:33] LABS: Anion Gap 3 mmol/L (6-16); Blood Urea Nitrogen 20 mg/dL (8-24); Bun/Creatinine Ratio 29.3 (12.0-20.0); CO2, Blood 32 mmol/L (21-32); Calcium, Blood 7.1 mg/dL (8.5-10.1); Chloride, Blood 111 mmol/L (98-108); Creatinine, Blood 0.68 mg/dL (0.60-1.20); Glomerular Filtration Rate >60 (60-); Glucose, Blood 130 mg/dL (70-99); Potassium, Blood 3.7 mmol/L (3.5-5.5); Sodium, Blood 146 mmol/L (136-145)
--- NOTE | 2021-08-20 17:47 | NUR ---
Pt a little more alert, asking to get out of here. Asking why he is here. Informed him about his liver and that he was in the hospital. He verbalized "I want out of here, I want to ". Will inform Dr. Watson in regards to this.
--- NOTE | 2021-08-20 18:06 | NUR ---
SHIFT SUMMARY: AO to self and family. Confusion off and on today. Asking to go home, does not clearly understand why he is here. He did state he wanted to go home and . Informed Dr. Watson of this. Gave Seroquel twice today. Precedex decreased to 0.8mcq/hr. LS expirtory wheezes, RA, Sat's high 90's. Sinus Patrick on the monitor, lowest HR 43. This started after second dose of propanol. Dr. Watson informed. Order to hold till she see's the patient in morning. Nurse notify placed. BP is on the soft side from 90's to 110's. Continues to have generalized edema mostly in hips, abd, and BUE. Abd distended and less firm than yesterday. Rectal tube removed this afternoon, no stool noted since. Cath patent and draining chito cloudy urine, low output today of 550. Very dry oral gavity, oral care done frequently. New wound to the left anterior ankle, caused by patient constantly pulling on SCD's and rubbing ankles together. Cleansed, picture taken, and drsg applied. SCD's currently off to give break. TF continues at goal rate, no residuals. D5 decreased to 30ml/hr. Will report to oncoming shift.
[2021-08-21 03:42] LABS: Anion Gap 4 mmol/L (6-16); Blood Urea Nitrogen 21 mg/dL (8-24); Bun/Creatinine Ratio 34.7 (12.0-20.0); CO2, Blood 28 mmol/L (21-32); Calcium, Blood 6.9 mg/dL (8.5-10.1); Chloride, Blood 111 mmol/L (98-108); Creatinine, Blood 0.61 mg/dL (0.60-1.20); Glomerular Filtration Rate >60 (60-); Glucose, Blood 108 mg/dL (70-99); Potassium, Blood 4.3 mmol/L (3.5-5.5); Sodium, Blood 143 mmol/L (136-145)
[2021-08-21 04:19] LABS: BASOPHILS ABSOLUTE AUTO 0.01 K/mm3 (0.00-0.23); BASOPHILS PERCENT AUTO 1 % (0-2); EOSINOPHILS PERCENT AUTO 5 % (0-6); IMMATURE GRAN ABSOLUTE AUTO 0.02 K/mm3 (0.00-0.10); IMMATURE GRAN PERCENT AUTO 1 % (0-1); LYMPHOCYTES ABSOLUTE AUTO 0.41 K/mm3 (0.84-5.20); LYMPHOCYTES PERCENT AUTO 19 % (21-46); MONOCYTES PERCENT AUTO 14 % (4-13); Mean Corpuscular HGB 31.4 pg (26.0-34.0); Mean Corpuscular HGB Conc 30.8 g/dL (31.5-36.5); Mean Corpuscular Volume 102 fL (80-100); Mean Platelet Volume 11.7 fL (9.1-12.4); NEUTROPHILS ABSOLUTE AUTO 1.36 K/mm3 (1.96-9.15); NEUTROPHILS PERCENT AUTO 62 % (41-73); RDW Coefficient Variation 18.7 % (11.7-14.2); Red Blood Cell Count 2.55 M/mm3 (4.30-5.90)
[2021-08-21 04:26] LABS: Platelet Count 35 K/mm3 (150-400)
--- NOTE | 2021-08-21 06:20 | NUR ---
Patient's mentation inconsistent throughout the shift. Intermittenelty agitated and pulling at lines and tubes, other times restful. In the morning, pt bathed and while awake during this time was much more communicative and cooperative. Reoriented to time, place, and situation. Asked for restraints to be removed, trial began at 0600; pt cooperative so far. Educated on criteria required to keep restraints off. Precedex weaned down throughout shift. HR and BP normalized.
--- NOTE | 2021-08-21 06:53 | NUR ---
Patient removed all monitoring cords, attmepted to crawl out of bed. Very confused at this time. Restraints reapplied for patient safety and device protection
--- NOTE | 2021-08-21 07:46 | NUR ---
AM NOTE.... ASSUMED CARE OF PT AT 0700, THE PT IS A&Ox2 ABLE TO STATE HIS NAME NOT HIS , BUT THAT HE WAS IN [place], HE FIRST STATED THE YEAR WAS 2003 BUT THEN CORRECTED HIMSELF AND SAID THAT THE YEAR WAS 2021. THE PT THEN YELLED OUT " I WANT WATER NOW BITCH!" AND "I WANT OUT OF HERE THE DOCTOR TOLD ME I COULD GO HOME TODAY!" THE PT IS CURRENTLY IN BILATERAL SOFT WRIST RESTRAINTS, THE PT KEEPS PULLING ON THEM DEMANDING TO BE LET OUT. THIS RN ATTEMPTED TO RE-ORIENT THE PT AND INFORM THE PT WHY HE WAS IN THE HOSPITAL AND WHY HE WAS IN RESTRAINTS, THE PT THE SAID "I DON'T CARE I WANT TO SPEAK TO YOUR MACHINE WELDER! NOW YOU'LL BE IN TROUBLE AND I'LL GET OUT OF HERE." THE PT IS CURRENTLY ON 0.6MCG OF PRECEDEX. THE PT IS IN SR W/FRIST DEGREE IN THE 90'S, BP IS STABLE, THE PT HAS 1+ EDEMA TO HIS BLE/FEET, AND DEPENDENT EDEMA NOTED TO HIS TRUNK/HIPS AND BUE WELL SCROTAL AND PENILE EDEMA. THE PT IS ON RA WITH O2 SATS >90% L/S CLEAR AND DIM T/O DIM IN THE BASES RR IS IN THE HIGH 20'S AND LABORED AT TIMES, THE PT'S ABD HAS SEVERE DISTENTION, IS FIRM AND NONTENDER TO PALPATION, THE PT STATES THAT "MY BELLY IS TOO FULL AND I FEEL LIKE ITS DROWNING ME." BT PRESENT AND HYPOACTIVE. DOBHOFF RUNNING TUBE FEED PER ORDERS. STONER IS PATENT AND DRAINING TO GRAVITY. WILL CONTINUE TO MONITOR.
--- NOTE | 2021-08-21 10:46 | NUR ---
PT UPDATE..... A BEDSIDE SWALLOW EVALUATION WAS DONE BY THIS RN, THE PT DID WELL AND THE TUBE FEEDS AND NG TUBE WERE D/C'd. THE PT WAS PLACED ON A [facility] SOFT DIET D/T NOT HAVING HIS DENTURES. THE LIFT WAS USED TO GET THE PT UP TO THE RECLINER CHAIR. THE PRECEDEX DRIP WAS STOPPED AT 1000 THE PT IS A LITTLE ANXIOUS BUT RE-DIRECTABLE AT THIS TIME. THE PT CONTINUES TO BE FORGETFUL BUT HAS NOT ATTEMPTED TO GET OUT OF THE RECLINER CHAIR. THE RESTRAINTS WERE D/C'd AT THIS TIME. TAB ALARM IS ON THE PT. WILL CONTINUE TO MONITOR.
--- NOTE | 2021-08-21 11:44 | NUR ---
Spiritual care visit conducted. Patient is sitting on a chair and pulling at his catheter and yelling that he has to "go pee." RN gabriel Schaffer explains about the importance of relaxing and using his catheter and the risks associated with pulling it out. Pt is easily distracted to another topic when I engage him in conversation. He asks questions about theology and the Hol[employer] belief system and shares his concerns about reconciliation with his life partner. He also expresses doubts that he is being told the truth about whether he is "going to make it" or not. Pt states that he feels like he is dying. I normalize pt's fears and provide therapeutic listening, theological insights, gentle rehabilitation counselor and prayer. I also attempt to connect he and his life partner via landline but all attempts failed. Pt responds well to all interventions and shows signs of reduced stress. I will continue to remain available to patient and fmaily.
--- NOTE | 2021-08-21 13:06 | NUR ---
PT UPDATE... THE PT WAS STARTED TO GET VERY ANXIOUS, THE PRECEDEX DRIP HAS BEEN OFF APROX 2 HOURS AT THIS TIME, THE PROVIDER WAS CALLED AND AN ORDER WAS OBTAINED FOR A 1 TIME DOSE OF 25MG SEROQUEL, THE PT SWALLOWED THIS WELL WHOLE IN APPLE SAUCE. THE PT SAT UP IN THE RECLINER CHAIR FOR 3 HOURS AND WORKED WITH OT. THE PT'S ANXIETY IMPROVED GREATLY WITH THE EXTRA DOSE OF SEROQUEL. THE LIFT WAS USED TO GET THE PT BACK INTO BED. THE PT'S VS CONTINUE TO BE STABLE, WILL CONTINUE TO MONITOR.
--- NOTE | 2021-08-21 13:11 | NUR ---
PT UPDATE.... ONCE THE PT WAS BACK INTO BED THE PT SAID "NOW WHAT ARE YOU GOING TO DO ABOUT ALL THOSE BUGS CRAWLING UP AND DOWN THE MCCALL AND THE CURTAINS?" WHEN THE PT WAS TOLD THERE WERE NO BUGS CRAWLING THE PT SAID "YOU DON'T SEE THOSE BIG BUGS? THEY LOOK LIKE HUGE COCKROACHES ALL OVER THE PLACE." WHEN THIS RN TOLD THE PT THERE WERE NO BUGS HE SAID "HMM OKAY I MUST BE SEEING THINGS." WILL CONTINUE TO MONITOR.
--- NOTE | 2021-08-21 13:29 | NUR ---
PT IN ROOM WITH PATIENT, SBP TRENDING 80-90S, MAP 60 AND ABOVE, MEDICATED WITH NORCO FOR PAIN, PRECEDEX DECREASED TO 0.6, WCTM
--- NOTE | 2021-08-21 17:53 | NUR ---
SHIFT SUMMARY.... NO ACUTE NEGATIVE CHANGES NOTED SINCE PREVIOUS NOTES. THE SEROQUEL WAS D/C'd PER PROVIDER BECAUSE OF THE PT'S HALLUCINATIONS. LAST DOSE WAS GIVEN AT 1436, THE PT IS STILL HAVING HALLUCINATIONS OF "LARGE BLACK BEETLE LIKE BUGS RUNNING ALL OVER." THE PT'S VS STABLE T/O THIS SHIFT. THE PT'S STNOER PATENT AND DRAINING ZONIA URINE TO GRAVITY. THE PT ATE 100% OF HIS DINNER BUT NEEDS FED D/T POOR FINE MOTOR SKILLS AT THIS TIME. THE PT HAS NOT HAD A BM THIS SHIFT, THE PT'S LACTULOSE WAS INCREASED FROM BID TO TID. THE PT'S WAS UPDATED ON THE PT'S CONDITION AND PLAN OF CARE FOR THE DAY. CALL LIGHT IN REACH, BED ALARM IS ON WILL CONTINUE TO MONITOR UNTIL REPORT IS GIVEN TO ONCOMING RN.
--- NOTE | 2021-08-21 19:30 | NUR ---
ASSESSMENT/ASSUMED CARE PT SITTING UP IN CHAIR WITH FAMILY AT BEDSIDE. PT ALERT AND ORIENTED EXCEPT FOR YEAR. PT STATES,"IT'S 2022" REORIENED TO YEAR. PT HAVING HALLUCINATION ABOUT BUGS ON THE CEILING AND THE FLOOR. STATES,"YOU TELL ME THEY ARE NOT THERE AND I BELIEVE YOU BUT I CAN SEE THEM". LUNGS CLEAR BUT DECREASED IN THE BASES ON ROOMAIR. SOB WITH ACTIVITY, RESOLVES WITH REST. HEART RATE REGULAR 80-90'S. BP STABLE. BT+ ABD FIRM AND NONTENDER. DENIES N/V. POWER GLIDE TO RIGHT AND LEFT UPPER ARMS, SALINE LOCKED. SITES CLEAR AND ABLE TO FLUSH WITHOUT DIFFICULTY. STONER CATH PATENT DRAINING YELLOW URINE. TAB ALARM ON PT. FAMILY AT BEDSIDE.
--- NOTE | 2021-08-21 22:43 | NUR ---
MD VISIT DR CRUZ INTO SEE PT. POSSIBLE PCU STATUS TOMORROW
--- NOTE | 2021-08-22 02:49 | NUR ---
PT BACK TO BED. STATES,"I JUST NEED TO GET SOME REST". PT MED WITH ATIVAN 1MG FOR ANXIETY. BED ALARM ON.
[2021-08-22 03:01] LABS: BASOPHILS ABSOLUTE AUTO 0.04 K/mm3 (0.00-0.23); BASOPHILS PERCENT AUTO 1 % (0-2); EOSINOPHILS PERCENT AUTO 3 % (0-6); Hematocrit 29.9 % (37.0-53.0); Hemoglobin 9.4 g/dL (13.5-17.5); IMMATURE GRAN ABSOLUTE AUTO 0.04 K/mm3 (0.00-0.10); IMMATURE GRAN PERCENT AUTO 1 % (0-1); LYMPHOCYTES ABSOLUTE AUTO 1.01 K/mm3 (0.84-5.20); LYMPHOCYTES PERCENT AUTO 16 % (21-46); MONOCYTES ABSOLUTE AUTO 0.61 K/mm3 (0.16-1.47); MONOCYTES PERCENT AUTO 10 % (4-13); Mean Corpuscular HGB 31.2 pg (26.0-34.0); Mean Corpuscular HGB Conc 31.4 g/dL (31.5-36.5); Mean Corpuscular Volume 99 fL (80-100); Mean Platelet Volume 12.1 fL (9.1-12.4); NEUTROPHILS ABSOLUTE AUTO 4.39 K/mm3 (1.96-9.15); NEUTROPHILS PERCENT AUTO 70 % (41-73); Platelet Count 89 K/mm3 (150-400); RDW Coefficient Variation 19.3 % (11.7-14.2); RDW Standard Deviation 66.6 fL (35.1-46.3); Red Blood Cell Count 3.01 M/mm3 (4.30-5.90); White Blood Cell Count 6.29 K/mm3 (4.00-11.30)
[2021-08-22 03:13] LABS: Albumin, Blood 2.4 g/dL (3.4-5.0); Anion Gap 4 mmol/L (6-16); Blood Urea Nitrogen 20 mg/dL (8-24); Bun/Creatinine Ratio 26.1 (12.0-20.0); CO2, Blood 30 mmol/L (21-32); Calcium, Blood 7.9 mg/dL (8.5-10.1); Chloride, Blood 108 mmol/L (98-108); Creatinine, Blood 0.77 mg/dL (0.60-1.20); Glomerular Filtration Rate >60 (60-); Glucose, Blood 101 mg/dL (70-99); Phosphorus, Blood 2.7 mg/dL (2.5-4.9); Potassium, Blood 3.9 mmol/L (3.5-5.5); Sodium, Blood 142 mmol/L (136-145)
--- NOTE | 2021-08-22 06:10 | NUR ---
SHIFT SUMMARY PT SITTING UP IN BED WATCHING TV AND DRINKING MILK SHAKE. AWAKE ALL NIGHT. MED WITH SIMETHICONE ONCE FOR BLOATING AND ATIVAN ONCE FOR ANXIETY. PT UP IN CHAIR TWICE DURING THE NIGHT WITH WALKER AND GAIT BELT. PT STATES,"I WANT TO GO HOME TODAY". DR CRUZ INTO SEE PT DURING THE NIGHT. POSSIBLE STATUS CHANGE TODAY TO PCU. VSS. POWER GLIDE X2 SALINE LOCKED. BED ALARM ON. REPORT TO ON COMING NURSE
--- NOTE | 2021-08-22 07:02 | NUR ---
Received report from Debbi OWENS. Patient awake in bed and is alert and able to communicate his needs. He moves all extremities on command and is very weak. He states wants to go home and will do rehab at home, and does not want to stay. He has bilateral 18 ga Power glides in upper armsboth flushed and dressings WNL's. He has 14 Fr Nicole draining to gravity dark yellow urine and has temp 99.4. He has audible wheezes from bedside and is some what anxious, and is on RA and sats 92%. He has mepelex type dressing to left anterior ankle. He is currently tolerating milk shake.
--- NOTE | 2021-08-22 10:06 | NUR ---
Patient up to chair for breakfast and transferred with one assist and then up to bathroom with one assist and now Physical therapy in room working with patient. He remains alert and oriented and able to communicate his needs. He is also audible wheezes at chair side. He tolerated PO meds and Breakfast. He has large black stool. Nicole remains patent.
--- NOTE | 2021-08-22 11:58 | NUR ---
Patient continues ot express about going home and had care management talk with him and he stated he kneww he could just walk out if he wants and he stated he knows he can not walk out of here. He has a plan for care at home and they are going talk with family to see if they agree.
--- NOTE | 2021-08-22 15:49 | NUR ---
Report given to medical RN and awaiting care management to see family now that they are here. He has been up to bathroom several times with walker and 1 SBA. OT just finished with patient and he tolerated well. Ex at bedside. He was taken to room 350 by wheelchair and all his meds and belongings.
--- NOTE | 2021-08-22 18:18 | NUR ---
SHIFT SUMMARY PATIENT IS ALERT AND ORIENTATED X4. PATIENT IS A RECENT TRANSFER FROM ICU. PATIENT HAS HAD NO ACUTE EVENTS THIS SHIFT. PATIENT HAS A STONER AND IS DRAINING TO GRAVITY. PATIENT IS A ONE PERSON ASSIST WITH WALKER TO BATHROOM. VITAL SIGNS REVIEWED. BED IN LOCKED AND LOWEST POSITION. WILL MONITOR UNTIL SHIFT CHANGE.
[2021-08-23 05:11] LABS: Hematocrit 24.8 % (37.0-53.0); Hemoglobin 7.9 g/dL (13.5-17.5); Mean Corpuscular HGB 31.9 pg (26.0-34.0); Mean Corpuscular HGB Conc 31.9 g/dL (31.5-36.5); Mean Corpuscular Volume 100 fL (80-100); Mean Platelet Volume 11.2 fL (9.1-12.4); Platelet Count 86 K/mm3 (150-400); RDW Coefficient Variation 19.7 % (11.7-14.2); Red Blood Cell Count 2.48 M/mm3 (4.30-5.90); White Blood Cell Count 3.51 K/mm3 (4.00-11.30)
--- NOTE | 2021-08-23 05:20 | NUR ---
PATIENT ALERT AND ORIENTED X'S 3. PATIENT VOICED HE WANTED TO JUST GET SOME REST. MEDICATED WITH MELATONIN AND TRAZADONE, EFFECTIVE RELIEF. WOKE UP APPERAED ANXIOUS AND RESTLESS, VOICED HE WOKE UP FROM [place] AND COULDN'T SLEEP. MEDICATED WITH ATIVAN 2MG IV. CURRENTLY IN BED RESTING. STONER CATHETER PATENT. SAFETY MAINTAINED, CALL ADEN IN REACH.
--- NOTE | 2021-08-23 14:28 | NUR ---
PATIENT IS ALERT AND ORIENTATED X 3-4. CONTINUES ON LASIX IV. ONE PERSON ASSITST WITH WALKER. STONER CATHETER D/C'D. MONITORING FOR URINARY RETENTION POST STONER D/C'D. DENIES PAIN OR DISCOMFORT AT THIS TIME. WILL CONTINUE TO MONITOR.
[2021-08-23] MEDS ORDERED: LOTE.2OPSU LEFTEYE (17:51)
[2021-08-23] MEDS ORDERED: FURO40 PO (20:04)
[2021-08-23] MEDS ORDERED: CALCIUM CITRATE PO (20:04)
[2021-08-23] MEDS ORDERED: Enulose10 GM/15 M PO (20:05)
[2021-08-23] MEDS ORDERED: OMEP20ER PO (20:06)
[2021-08-23] MEDS ORDERED: PROP10 PO (20:07)
[2021-08-23] MEDS ORDERED: SIME80CH PO (20:07)
--- NOTE | 2021-08-23 22:15 | NUR ---
ALERT AND ORIENTED X'S 4, FORGETFUL AT TIMES. NO DISRESS NOTED. REVIEWED MEDICATION RECONCILIATION AND DISCHARGE INSTRUCTIONS WITH PATIENT AND SPOUSE, VERBALIZED UNDERSTANDING. PATIENT DISCARGED AT 2140 VIA WHEEL CHAIR WITH AWAITING IN CAR.
== END 2021-08-23 21:40 | disposition home or self-care (01) | DRG 432 ==
LOC: ER 20:30 → ICUE 20:31 → ICUW 20:31 → ICUE 08-13 00:58 → MEDS 08-22 15:58
PROVIDERS: Internal Medicine; Internal Medicine Gastroenterology; Physician Assistant; ADMIT Internal Medicine
PROC: 30233N1 Transfusion of Nonautologous Red Blood Cells into Peripheral Vein, Percutaneous Approach (ICD-10-PCS; 2021-08-13)
PROC: 0DH67UZ Insertion of Feeding Device into Stomach, Via Natural or Artificial Opening (ICD-10-PCS; 2021-08-13)
PROC: 3E03329 Introduction of Other Anti-infective into Peripheral Vein, Percutaneous Approach (ICD-10-PCS; 2021-08-13)
PROC: 3E033XZ Introduction of Vasopressor into Peripheral Vein, Percutaneous Approach (ICD-10-PCS; 2021-08-13)
PROC: 0DJ08ZZ Inspection of Upper Intestinal Tract, Via Natural or Artificial Opening Endoscopic (ICD-10-PCS; principal; 2021-08-13 00:30)
PROC: 0DJ08ZZ Inspection of Upper Intestinal Tract, Via Natural or Artificial Opening Endoscopic (ICD-10-PCS; 2021-08-14)
DX: K74.60 Unspecified cirrhosis of liver (principal); J96.01 Acute respiratory failure with hypoxia; J18.9 Pneumonia, unspecified organism; R57.8 Other shock; E87.1 Hypo-osmolality and hyponatremia; D61.818 Other pancytopenia; D62 Acute posthemorrhagic anemia; E87.0 Hyperosmolality and hypernatremia; K56.7 Ileus, unspecified; I86.4 Gastric varices; J44.9 Chronic obstructive pulmonary disease, unspecified; F10.20 Alcohol dependence, uncomplicated; F17.210 Nicotine dependence, cigarettes, uncomplicated; Z98.890 Other specified postprocedural states; Z79.82 Long term (current) use of aspirin; Z98.42 Cataract extraction status, left eye; Z98.41 Cataract extraction status, right eye; F41.9 Anxiety disorder, unspecified; K80.20 Calculus of gallbladder without cholecystitis without obstruction; B19.20 Unspecified viral hepatitis C without hepatic coma; D69.6 Thrombocytopenia, unspecified; K72.90 Hepatic failure, unspecified without coma; E83.51 Hypocalcemia
CPT/HCPCS: 0241U; 36415; 36430; 51703; 71045; 74170; 76700; 80048; 80053; 80069; 82103; 82104; 82105; 82140; 82272; 82330; 82607; 82728; 82746; 83540; 83550; 83735; 84100; 85014; 85018; 85025; 85027; 85610; 86015; 86038; 86317; 86381; 86704; 86708; 86803; 86850; 86900; 86901; 86923; 87340; 93005; 93010; 93306; 94640; 94664; 94760; 96374; 96375; 96376; 97110; 97116; 97162; 97166; 97530; 97535; 99285-25; A9270; C1751; C9113; G0378; J0171; J0696; J1430; J1940; J2001; J2060; J2250; J2354; J2370; J2704; J2765; J3010; J7030; J7050; J7060; J7070; J7120; P9016; P9046; Q9967

== ENCOUNTER 2021-11-03 12:28 | Emergency (ER) | payer OTHER ==
[~2021-11-03] VITALS: Ht 180.3 cm; Wt 93.9 kg
[~2021-11-03 12:28] MED LIST: CALCIUM CITRATE PO; Enulose10 GM/15 M PO; FURO40 PO; LOTE.2OPSU LEFTEYE; OMEP20ER PO; PROP10 PO; SIME80CH PO; TIMO.5OPSO BOTHEYES
[2021-11-03 13:11] LABS: BASOPHILS ABSOLUTE AUTO 0.03 K/mm3 (0.00-0.23); BASOPHILS PERCENT AUTO 0 % (0-2); EOSINOPHILS ABSOLUTE AUTO 0.06 K/mm3 (0.00-0.68); EOSINOPHILS PERCENT AUTO 1 % (0-6); Hematocrit 30.4 % (37.0-53.0); Hemoglobin 8.8 g/dL (13.5-17.5); IMMATURE GRAN ABSOLUTE AUTO 0.04 K/mm3 (0.00-0.10); IMMATURE GRAN PERCENT AUTO 1 % (0-1); LYMPHOCYTES ABSOLUTE AUTO 0.32 K/mm3 (0.84-5.20); LYMPHOCYTES PERCENT AUTO 4 % (21-46); MONOCYTES ABSOLUTE AUTO 0.87 K/mm3 (0.16-1.47); MONOCYTES PERCENT AUTO 11 % (4-13); Mean Corpuscular HGB 23.9 pg (26.0-34.0); Mean Corpuscular HGB Conc 28.9 g/dL (31.5-36.5); Mean Corpuscular Volume 83 fL (80-100); Mean Platelet Volume 10.4 fL (9.1-12.4); NEUTROPHILS ABSOLUTE AUTO 6.48 K/mm3 (1.96-9.15); NEUTROPHILS PERCENT AUTO 83 % (41-73); Platelet Count 99 K/mm3 (150-400); RDW Coefficient Variation 22.3 % (11.7-14.2); RDW Standard Deviation 64.3 fL (35.1-46.3); Red Blood Cell Count 3.68 M/mm3 (4.30-5.90)
[2021-11-03 13:24] LABS: Albumin, Blood 3.2 g/dL (3.4-5.0); Albumin/Globulin Ratio 0.6 (0.8-1.8); Bilirubin, Total 1.1 mg/dL (0.1-1.0); Bun/Creatinine Ratio 21.3 (12.0-20.0); Creatinine, Blood 0.56 mg/dL (0.60-1.20); Globulin, Blood 5.1 g/dL (2.2-4.0); Potassium, Blood 3.8 mmol/L (3.5-5.5); Total Protein, Blood 8.3 g/dL (6.4-8.2)
[2021-11-03] MEDS ORDERED: Prednisone50 MG PO (15:58)
[2021-11-03] MEDS ORDERED: ALBU90OI INH (15:58)
== END 2021-11-03 16:38 | disposition home or self-care (01) ==
LOC: ER 12:28
PROVIDERS: Student in an Organized Health Care Education/Training Program
DX: J44.9 Chronic obstructive pulmonary disease, unspecified (principal); J40 Bronchitis, not specified as acute or chronic; B19.20 Unspecified viral hepatitis C without hepatic coma; Z87.891 Personal history of nicotine dependence; F12.90 Cannabis use, unspecified, uncomplicated; F10.21 Alcohol dependence, in remission; Z79.899 Other long term (current) drug therapy
CPT/HCPCS: 36415; 71046; 80053; 83605; 83880; 84484; 85025; 93005; 93010; 94640; 94664; 99285-25; A9270; J7512

== ENCOUNTER 2022-09-05 07:23 | Day surgery (SDC) | payer OTHER ==
[~2022-09-05] VITALS: Ht 180.3 cm; Wt 97.3 kg
[~2022-09-05 07:23] MED LIST changes: +ALBU90OI INH; +Prednisone50 MG PO
[2022-09-05] MEDS ORDERED: GABA300 (07:48)
[2022-09-05] MEDS ORDERED: PANT20 (07:48)
== END 2022-09-05 09:35 | disposition home or self-care (01) ==
LOC: ORSCSDS 07:23
PROVIDERS: Internal Medicine Gastroenterology
PROC: 0DB48ZX Excision of Esophagogastric Junction, Via Natural or Artificial Opening Endoscopic, Diagnostic (ICD-10-PCS; principal; 2022-09-05 08:45)
DX: K70.30 Alcoholic cirrhosis of liver without ascites (principal); K22.70 Barrett's esophagus without dysplasia; I86.4 Gastric varices; K76.6 Portal hypertension; K31.89 Other diseases of stomach and duodenum; D69.6 Thrombocytopenia, unspecified; D68.9 Coagulation defect, unspecified; E88.09 Other disorders of plasma-protein metabolism, not elsewhere classified; K76.82 Hepatic encephalopathy; J44.9 Chronic obstructive pulmonary disease, unspecified; Z79.899 Other long term (current) drug therapy; Z87.891 Personal history of nicotine dependence
CPT/HCPCS: 88305; J2704; J7120

== ENCOUNTER 2023-09-24 17:36 | Emergency (ER) | payer OTHER ==
[~2023-09-24] VITALS: Ht 177.8 cm; Wt 88.9 kg
[~2023-09-24 17:36] MED LIST changes: +GABA300; +PANT20
[2023-09-24 17:44] VITALS: BP 181/80
[2023-09-24] MEDS ORDERED: Diphth,Pertuss(Acell),Tet Vac 0.5 ML VIAL IM ONE (17:45)
[2023-09-24] MEDS ORDERED: LATA.005SO BOTHEYES (18:04)
[2023-09-24] MEDS ORDERED: Lidocaine/Tetracaine/Epinephr 4 ML SOLN TOP ONE (18:45)
[2023-09-24] MEDS ORDERED: CeFAZolin 1000MG in D5W 50 ML IV ONE (20:05)
[2023-09-24] MEDS ORDERED: CeFAZolin Sodium 1,000 MG in NS 50 ML IV ONE (20:15)
[2023-09-24] MEDS ORDERED: RX Prepack 6 Tabs Oxycodone 5mg UD ONE (20:15)
[2023-09-24] MEDS ORDERED: AMOCLA875 PO (21:08)
[2023-09-24] MEDS ORDERED: OxyCODONE HCL 5 MG TAB PO ONE (21:10)
== END 2023-09-24 21:59 | disposition home or self-care (01) ==
LOC: ER 17:36
DX: S62.615B Displaced fracture of proximal phalanx of left ring finger, initial encounter for open fracture (principal); J44.9 Chronic obstructive pulmonary disease, unspecified; W31.1XXA Contact with metalworking machines, initial encounter; Z87.891 Personal history of nicotine dependence; Z79.899 Other long term (current) drug therapy
CPT/HCPCS: 12002; 73130; 90471; 90715; 96365-59; 99283-25; A9270; J0690